=== PATIENT | female | born 1940 | race Caucasian/White ===

== ENCOUNTER → 2023-02-22 | Outpatient (RCR) | payer MEDICARE, BC ==
[~2023-02-22] MED LIST: AMILORIDE/HCTZ1 TAB PO; ATROVENTNS0.03% NS; AVAPRO75 MG PO; CARDIZEM CD 18180 MG PO; CELEBREX 200MG200 MG PO; CITRACAL + D CA1 TAB PO; FLONASEALLERGY NS; LASIX 20MG TABL20 MG PO; MASON NATURAL1000 MG PO; NEURONTIN600 MG/TAB PO; ROXICODONE 55 MG/TAB PO; TOPROL XL 25MG25 MG PO; ULTRAM 50MG TAB50 MG PO; VALIUM 2MG T2 MG/TAB PO; ZYRTEC 10MG10 MG PO
== END | disposition home or self-care (01) ==
LOC: WSST
DX: R13.14 Dysphagia, pharyngoesophageal phase (principal)

== ENCOUNTER → 2023-07-07 | Outpatient (CLI) | payer MEDICARE, BC | LOC: MC.RAD 08:44 | DX: Z12.31 Encounter for screening mammogram for malignant neoplasm of breast (principal) ==

== ENCOUNTER 2023-12-25 10:53 | Inpatient (IN) | payer MEDICARE, BC ==
[2023-12-25] VITALS (350 sets, daily range): BP systolic 111–121; BP diastolic 61–64; PULSE 61–64; TEMP 97.6–97.9; O2SAT 87–100
[~2023-12-25] VITALS: Ht 160 cm; Wt 50.9 kg
[~2023-12-25 10:53] MED LIST changes: +NEURONTIN300 MG/CAP PO; -NEURONTIN600 MG/TAB PO
[2023-12-25] MEDS ORDERED: NS 1,000 ML IV ONE (11:15)
[2023-12-25] MEDS ORDERED: MASON NATURAL2000 IU PO (11:20)
[2023-12-25] MEDS ORDERED: ALDACTONE 25MG25 M1 PO (11:21)
[2023-12-25] MEDS ORDERED: PLAQUENIL 200M200 MG PO (11:21)
[2023-12-25] MEDS ORDERED: SYSTANE 0.4%-0.1 SOL OU (11:22)
[2023-12-25] MEDS ORDERED: EPITOL PO (11:22)
[2023-12-25 11:55] LABS: BASO % 0.2 % (0.0-2.0); EOS % 0.5 % (0.0-4.0); GRAN # 2.7 K/mm3 (1.4-6.5); GRAN % 66.6 % (42.2-75.2); HEMOGLOBIN 11.8 g/dl (12.5-16.0); LYMPH # 0.8 K/mm3 (1.2-3.4); LYMPH % 19.7 % (20.0-51.0); MEAN CELL VOLUME 88 fl (80.0-100.0); MEAN CORPUSCULAR HEMOGLOBIN 31 pg (27-31); MEAN CORPUSCULAR HGB CONC 35 g/dl (33.0-37.0); MEAN PLATELET VOLUME 8.3 fl (7.4-10.4); MONO # 0.5 K/mm3 (0.1-0.6); MONO % 12.8 % (1.7-9.3); PLATELET COUNT 224 K/mm3 (130-400); RED BLOOD COUNT 3.87 M/mm3 (4.10-5.30); REDCELL DISTRIBUTION WIDTH-CV 12.2 % (11.5-14.5)
[2023-12-25 12:10] LABS: ALBUMIN 3.8 g/dL (3.4-4.8); BILIRUBIN,TOTAL 0.9 mg/dL (0.2-1.2); CALCIUM 9.4 mg/dL (8.4-10.2); CREATININE, serum 0.77 mg/dL (0.57-1.11); POTASSIUM 4.3 mEq/L (3.5-4.5); TOTAL PROTEIN 7.1 g/dl (6.2-8.1)
[2023-12-25] MEDS ORDERED: NS 100 ML IV SCH (12:26)
[2023-12-25] MEDS ORDERED: Iohexol 300 - 100 ML VIAL IV ONE (12:32)
[2023-12-25] MEDS ORDERED: Ondansetron 4 MG/2 ML VIAL IV PRN (14:15)
[2023-12-25] MEDS ORDERED: Gabapentin 300 MG CAP PO SCH ×2 (14:49→21:00)
--- NOTE | 2023-12-25 14:50 | NUR ---
Report received from EDUARDO Sneed; patient arrived to the ICU at approx 1447. Patient alert and oriented, on room air and no meds or fluids running through her peripheral line. Patient has no other lines or tubes in place. Patient able to ambulate to ICU bed with SBA; patient's vital signs within normal limits.
[2023-12-25] MEDS ORDERED: Carboxymethylcellulose PF Ophth 0.4 ML DROPPERETTE OP PRN (15:30)
[2023-12-25] MEDS ORDERED: NS 1,000 ML IV SCH (15:30)
[2023-12-25 15:48] LABS: CALCIUM 8.9 mg/dL (8.4-10.2); CREATININE, serum 0.71 mg/dL (0.57-1.11); POTASSIUM 4.3 mEq/L (3.5-4.5)
[2023-12-25] MEDS ORDERED: B-12 500 MCG PO (17:07)
[2023-12-25 17:18] LABS: COLLECTION METHOD CLEAN CATCH
[2023-12-25 17:25] LABS: URINE APPEARANCE CLEAR (CLEAR/HAZY); URINE BLOOD NEGATIVE (NEGATIVE); URINE COLOR YELLOW (YELLOW); URINE GLUCOSE NEGATIVE (NEGATIVE); URINE KETONE NEGATIVE (NEGATIVE); URINE NITRATE NEGATIVE (NEGATIVE); URINE PROTEIN(semi-quant) NEGATIVE (NEGATIVE); URINE UROBILINOGEN 0.2 E.U/dL (0.2-1.0)
[2023-12-25] MEDS ORDERED: traMADol 50 MG TAB PO PRN (21:30)
[2023-12-25 21:56] LABS: CALCIUM 9.1 mg/dL (8.4-10.2); CREATININE, serum 0.73 mg/dL (0.57-1.11); POTASSIUM 4.1 mEq/L (3.5-4.5)
[2023-12-26] VITALS (284 sets, daily range): BP systolic 108–159; BP diastolic 50–86; PULSE 60–72; TEMP 97.7–98.1; O2SAT 88–99
[2023-12-26 02:41] LABS: CALCIUM 8.1 mg/dL (8.4-10.2); CREATININE, serum 0.65 mg/dL (0.57-1.11); POTASSIUM 3.8 mEq/L (3.5-4.5)
--- NOTE | 2023-12-26 06:32 | NUR ---
PT HAD UNEVENTFUL NIGHT, WAS ABLE TO REST WELL. NO COMPLAINTS THIS MORNING, SIPPING ON DECAF COFFEE. NO ABDOMINAL PAIN OR N/V THIS SHIFT. SODIUM HAS BEEN TRENDING UP, REMAINS ON NS AT 75ML/HR.
[2023-12-26 06:33] LABS: BASO % 0.5 % (0.0-2.0); EOS # 0.1 K/mm3 (0.0-0.7); EOS % 1.5 % (0.0-4.0); GRAN # 2.1 K/mm3 (1.4-6.5); GRAN % 51.7 % (42.2-75.2); HEMOGLOBIN 10.9 g/dl (12.5-16.0); LYMPH # 1.2 K/mm3 (1.2-3.4); LYMPH % 29.1 % (20.0-51.0); MEAN CELL VOLUME 85 fl (80.0-100.0); MEAN CORPUSCULAR HEMOGLOBIN 31 pg (27-31); MEAN CORPUSCULAR HGB CONC 36 g/dl (33.0-37.0); MEAN PLATELET VOLUME 8.8 fl (7.4-10.4); MONO # 0.7 K/mm3 (0.1-0.6); PLATELET COUNT 199 K/mm3 (130-400); RED BLOOD COUNT 3.56 M/mm3 (4.10-5.30); REDCELL DISTRIBUTION WIDTH-CV 12.2 % (11.5-14.5)
[2023-12-26 06:46] LABS: HEMATOCRIT 30.3 % (37.0-47.0)
[2023-12-26 07:05] LABS: CALCIUM 8.3 mg/dL (8.4-10.2); CREATININE, serum 0.66 mg/dL (0.57-1.11); POTASSIUM 3.8 mEq/L (3.5-4.5)
--- NOTE | 2023-12-26 07:45 | NUR ---
Patient awake and resting in bed. Pleasant and cooperative with staff. Does report that her stomach hurts states that it's more of a "sick" feeling rather than a pain. Denies any other concerns at this time. Assisted up to use the bathroom and administerd PRN zofran for nausea. After eating breakfast patient reported that she felt "better". Call light left within reach.
[2023-12-26] MEDS ORDERED: Hydroxychloroquine 200 MG TAB PO SCH (09:00)
[2023-12-26] MEDS ORDERED: Celecoxib 200 MG CAP PO SCH (09:00)
[2023-12-26 10:24] LABS: CALCIUM 8.2 mg/dL (8.4-10.2); CREATININE, serum 0.7 mg/dL (0.57-1.11); POTASSIUM 3.9 mEq/L (3.5-4.5)
--- NOTE | 2023-12-26 13:13 | NUR ---
structural worker met with patient to discuss discharge planning. Patient lives in [place] and reports her granddaughter stays with her in the evening. PCP is Dr. Oviedo, Pharmacy is [facility]. No issues affording medications. Insurance is Medicare A and B and BCBS. Patient has a DPOA-HC on file, Twyla is primary P# [phone] and Rosangela is secondary P# [phone]. DME is [facility]. Patient reports to normally be independent with [facility] and has a form of transportation for follow up appointments. Patient would like to return home at time of discharge. SW was notified patient may transfer to the medical floor from the ICU today. SW notified patient's nurse of the DPOA-HC on file and the order of agents. Discharge plan: Home
[2023-12-26] MEDS ORDERED: Gabapentin 300 MG CAP PO SCH (14:50)
[2023-12-26 15:50] LABS: CALCIUM 8.6 mg/dL (8.4-10.2); CREATININE, serum 0.77 mg/dL (0.57-1.11)
[2023-12-26 19:51] LABS: CALCIUM 7.9 mg/dL (8.4-10.2); CREATININE, serum 0.7 mg/dL (0.57-1.11)
[2023-12-26 19:56] LABS: POTASSIUM 3.9 mEq/L (3.5-4.5)
--- NOTE | 2023-12-26 20:30 | NUR ---
UPON SHIFT ASSESSMENT, PEMA WAS SITTING ON SIDE OF BED AND IS A&O X 4. SHE AMBULATED TO RESTROOM WITH WEAK GAIT, STANDBY ASSISST WITH CANE. VS ARE CURRENTLY WITHIN NORMAL LIMITS. Na+ CURRENTLY AT 127, NS RUNNING AT 100ML/HR IN RT AC. SHE C/O OF THIRST-FREE WATER LIMITED AND CRANBERRY JUICE AND MILK GIVEN. PICKLES GIVEN SNACK.NEUROS ARE WNL, VS ARE WNL AND PATIENT DENIES PAIN AT THIS TIME. CALL LIGHT WITHIN REACH. BED ALARM ON.
[2023-12-26 23:45] LABS: CREATININE, serum 0.65 mg/dL (0.57-1.11); POTASSIUM 3.9 mEq/L (3.5-4.5)
[2023-12-27] VITALS (11 sets, daily range): BP systolic 144–169; BP diastolic 68–79; PULSE 65–75; TEMP 97.5–98.3
--- NOTE | 2023-12-27 01:57 | NUR ---
PATIENT AWAKE SUPINE IN BED. STATED SHE COULDN'T GET TO RESTROOM IN TIME WITH IV POLE AND HAD ACCIDENT. PATIENT ATTEMPTED TO AMBULATE WITHOUT STANDBY ASSISST. LINEN AND GOWN MINIMALLY WET-CHANGED. EDUCATION PROVIDED CHAIR SPRINGER LIGHT USE, BED ALARM AND FALL RISKS SUCH IV POLE. DENIES PAIN AND STATES NO NEEDS AT THIS TIME. CALL LIGHT WITHIN REACH, BED ALARM ON.
[2023-12-27 03:32] LABS: CALCIUM 8.3 mg/dL (8.4-10.2); CREATININE, serum 0.65 mg/dL (0.57-1.11)
--- NOTE | 2023-12-27 06:07 | NUR ---
0400 BMP RESULTED-Na+ TRENDING UPWARDS, NOW 129. PATIENT REMAINS PLEASANT. NEUROS AND VS ARE WNL. ATTEMPTS TO CLUSTER CARES MADE, HOWEVER, PATIENT UNABLE TO SLEEP D/T NIGHTLY INTERRUPTIONS AND FREQUENT URINATION R/T IVFs.
[2023-12-27 06:50] LABS: BASO % 0.5 % (0.0-2.0); EOS # 0.1 K/mm3 (0.0-0.7); EOS % 2.4 % (0.0-4.0); GRAN % 47.8 % (42.2-75.2); HEMOGLOBIN 10.5 g/dl (12.5-16.0); LYMPH # 1.4 K/mm3 (1.2-3.4); MEAN CELL VOLUME 87 fl (80.0-100.0); MEAN CORPUSCULAR HEMOGLOBIN 30 pg (27-31); MEAN CORPUSCULAR HGB CONC 35 g/dl (33.0-37.0); MEAN PLATELET VOLUME 9.2 fl (7.4-10.4); MONO # 0.6 K/mm3 (0.1-0.6); MONO % 15.3 % (1.7-9.3); PLATELET COUNT 217 K/mm3 (130-400); RED BLOOD COUNT 3.46 M/mm3 (4.10-5.30); REDCELL DISTRIBUTION WIDTH-CV 12.4 % (11.5-14.5)
[2023-12-27 06:52] LABS: HEMATOCRIT 30.2 % (37.0-47.0)
[2023-12-27 07:11] LABS: CALCIUM 8.5 mg/dL (8.4-10.2); CREATININE, serum 0.66 mg/dL (0.57-1.11)
[2023-12-27 10:04] LABS: CALCIUM 8.6 mg/dL (8.4-10.2); CREATININE, serum 0.69 mg/dL (0.57-1.11); POTASSIUM 3.9 mEq/L (3.5-4.5)
[2023-12-27 12:13] LABS: CALCIUM 8.5 mg/dL (8.4-10.2); CREATININE, serum 0.66 mg/dL (0.57-1.11)
[2023-12-27 15:42] LABS: CALCIUM 8.5 mg/dL (8.4-10.2); CREATININE, serum 0.63 mg/dL (0.57-1.11); POTASSIUM 4.1 mEq/L (3.5-4.5)
--- NOTE | 2023-12-27 21:00 | NUR ---
UPON SHIFT ASSESSMENT, PEMA WAS AWAKE IN BEDSIDE RECLINER. SHE IS AXO X4 AND NEUROS ARE WNL. CURRENT NA+ REMAINS 129. NS RUNNING AT 100ML/HR. PATIENT CURRENTLY DENIES NAUSEA AND ABDOMINAL PAIN. VS ARE WNL. TELE IS NS. PATIENT STATES NO NEEDS AT THIS TIME. CALL LIGHT WITHIN REACH, CHAIR ALARM ON.
[2023-12-28] VITALS (7 sets, daily range): BP systolic 137–161; BP diastolic 61–72; PULSE 73–79; TEMP 97.7–98.9
--- NOTE | 2023-12-28 01:36 | NUR ---
PATIENT ACTIVATE BED ALARM. AWOKE FROM SLEEP DISORIENTED AND ATTEMPTED TO TAKE IV OUT. AMBULATED TO RESTROOM. TOOK SEVERAL ATTEMPTS TO RE-ORIENT PATIENT.
[2023-12-28 07:09] LABS: BASO % 0.5 % (0.0-2.0); EOS # 0.1 K/mm3 (0.0-0.7); EOS % 2.5 % (0.0-4.0); GRAN # 2.3 K/mm3 (1.4-6.5); GRAN % 52.7 % (42.2-75.2); HEMOGLOBIN 10.6 g/dl (12.5-16.0); LYMPH # 1.3 K/mm3 (1.2-3.4); LYMPH % 28.5 % (20.0-51.0); MEAN CELL VOLUME 88 fl (80.0-100.0); MEAN CORPUSCULAR HEMOGLOBIN 31 pg (27-31); MEAN CORPUSCULAR HGB CONC 35 g/dl (33.0-37.0); MEAN PLATELET VOLUME 8.8 fl (7.4-10.4); MONO # 0.7 K/mm3 (0.1-0.6); MONO % 15.6 % (1.7-9.3); PLATELET COUNT 227 K/mm3 (130-400); RED BLOOD COUNT 3.43 M/mm3 (4.10-5.30); REDCELL DISTRIBUTION WIDTH-CV 12.4 % (11.5-14.5)
[2023-12-28 07:11] LABS: HEMATOCRIT 30.1 % (37.0-47.0)
[2023-12-28 07:28] LABS: ANION GAP 8 mmol/L (7-16); BLOOD UREA NITROGEN < 5 mg/dL (10-20); CALCIUM 8.5 mg/dL (8.4-10.2); CHLORIDE 101 mEq/L (98-107); CREATININE, serum 0.62 mg/dL (0.57-1.11); GLUCOSE 93 mg/dL (70-99); POTASSIUM 3.8 mEq/L (3.5-4.5); SODIUM 131 mEq/L (136-145)
[2023-12-28] MEDS ORDERED: Spironolactone 25 MG TAB PO SCH (09:00)
--- NOTE | 2023-12-28 10:02 | NUR ---
THIS RN SPOKE WITH PATIENTS DAUGHTER MESERET, SHE WILL ARRIVE [facility] 3-4PM TODAY TO PROJECT ANALYST PATIENT FOR DISCHARGE.
--- NOTE | 2023-12-28 11:14 | NUR ---
SW met with patient to review [facility] IM form. Patient voiced understanding and signed form. Original on chart, copy to patient. Daughter to pick patient up for transport home.
--- NOTE | 2023-12-28 15:00 | NUR ---
PATIENT IV AND TELE REMOVED. PATIENT DRESSED AND AWAITING RIDE.
--- NOTE | 2023-12-28 15:15 | NUR ---
PATIENT TAKEN VIA WHEELCHAIR TO PATIENT ENTRANCE WHERE SHE LEFT IN STABLE CONDITION.
== END 2023-12-28 15:39 | disposition home or self-care (01) | DRG 641 ==
LOC: COL.ER 10:53 → ICU 14:17 → MEDICAL 14:17
PROVIDERS: Personal Emergency Response Attendant; ADMIT Internal Medicine
DX: E87.1 Hypo-osmolality and hyponatremia (principal); I10 Essential (primary) hypertension; G62.9 Polyneuropathy, unspecified; M35.00 Sjogren syndrome, unspecified; K21.9 Gastro-esophageal reflux disease without esophagitis; K80.20 Calculus of gallbladder without cholecystitis without obstruction; Z96.653 Presence of artificial knee joint, bilateral; Z88.6 Allergy status to analgesic agent; Z79.899 Other long term (current) drug therapy; Z23 Encounter for immunization
CPT/HCPCS: J1650; J2405; J7030; Q9967